=== PATIENT | female | born 1965 | race Caucasian/White ===

== ENCOUNTER 2016-08-24 15:26 | Emergency (ER) | payer OTHER ==
[~2016-08-24] VITALS: Wt 62.0 kg
[~2016-08-24 15:26] MED LIST: ALBU18HF; DIPH25CA6; FEXO-10 PO; IMODIUM; MECL12.5 PO; SIMV20TA2 PO
[2016-08-24] MEDS ORDERED: METHYLPREDNISOLONE 125 MG INJ IV ONE (16:30)
[2016-08-24] MEDS ORDERED: FAMOTIDINE 20 MG INJ IV ONE (16:30)
[2016-08-24] MEDS ORDERED: DIPHENHYDRAMINE 50 MG INJ IV ONE (16:30)
[2016-08-24] MEDS ORDERED: SOD CHLORIDE 0.9% 1,000 ML IV ONE (16:30)
[2016-08-24] MEDS ORDERED: PRED20TA PO (18:13)
[2016-08-24] MEDS ORDERED: BEN25 PO (18:14)
--- NOTE | 2016-08-24 18:23 | ERD ---
ER Documentation Chief Complaint Date/Time DATE: 08/24/16 TIME: 18:20 Chief Complaint RASH TODAY HPI This is a 50-year-old female presents to the ER with a rash that started yesterday. Patient states that rash started on her chest and now is located all over her body. Rash is extremely itchy. Patient denies any fevers or chills. She denies any facial swelling or difficulty in breathing. Patient denies trying any new foods, starting any new medications, or coming in contact with any new substances or detergents. Patient denies any fevers or chills. Patient tried putting topical Benadryl on the rash however it only minimally helped. ROS 12 point review of systems was done, all negative except per HPI. Medications Home Meds Active Scripts Diphenhydramine Hcl* (Benadryl*) 25 Mg Cap, 25 MG PO Q6, #30 CAP Prov:HEATHER RICO 08/24/16 Prednisone* (Prednisone*) 20 Mg Tab, 40 MG PO DAILY for 5 Days, TAB Prov:HEATHER RICO 08/24/16 Meclizine Hcl* (Meclizine Hcl*) 12.5 Mg Tablet, 12.5 MG PO Q8H Y for DIZZINESS for 5 Days, TAB Prov:HEATHER RICO 09/11/15 Reported Medications [Imodium] No Conflict Check 01/09/12 Albuterol Sulfate* (Ventolin HFA*) 18 Gm Hfa.aer.ad 04/11/11 Diphenhydramine Hcl (Benadryl) 25 Mg Cap 04/11/11 Fexofenadine Hcl (Anitra) 60 Mg Tablet, 60 MG PO DAILY 03/17/11 Simvastatin (Simvastatin) 20 Mg Tablet, 20 MG PO NIGHTLY 02/11/11 Allergies Allergies: Coded Allergies: No Known Allergy (Unverified , 08/24/16) PMhx/Soc Medical and Surgical Hx: pt denies Surgical Hx History of Surgery: No Anesthesia Reaction: No Hx Neurological Disorder: No Hx Respiratory Disorders: No Hx Cardiac Disorders: No Hx Psychiatric Problems: No Hx Miscellaneous Medical Probl: Yes (HIGH CHOLESTEROL) Hx Alcohol Use: No Hx Substance Use: No Hx Tobacco Use: No Smoking Status: Never smoker Physical Exam Vitals Vital Signs Date Time Temp Pulse Resp B/P Pulse Ox O2 Delivery O2 Flow Rate FiO2 08/24/16 15:30 98.0 92 18 138/78 99 Physical Exam GENERAL: The patient is well developed and appropriate for usual state of health , in no apparent distress. HEENT: Atraumatic. No tongue swelling, mouth swelling, eyes swelling. CHEST: Clear to auscultation bilaterally. There are no rales, wheezes or rhonchi. HEART: Regular rate and rhythm. No murmurs, clicks, rubs or gallops. NEURO: Alert and oriented. SKIN: Macular raised rash all over the body that is very pruritic. Results 24 hrs Current Medications Medications (Trade) Dose Ordered Sig/Diane Route PRN Reason Start Time Stop Time Status Last Admin Dose Admin Sodium Chloride (NS) 1,000 ml @ 1,000 mls/hr Q1H ONCE IV 08/24/16 16:30 08/24/16 17:29 DC 08/24/16 16:33 Methylprednisolone Sodium Succinate (Solu-Medrol) 125 mg ONCE ONCE IV 08/24/16 16:30 08/24/16 16:31 DC 08/24/16 16:32 Diphenhydramine HCl (Benadryl) 50 mg ONCE ONCE IV 08/24/16 16:30 08/24/16 16:31 DC 08/24/16 16:32 Famotidine (Pepcid Iv) 20 mg ONCE ONCE IV 08/24/16 16:30 08/24/16 16:31 DC 08/24/16 16:32 Procedures/MDM Differential Diagnosis: dermatitis, allergic urticaria, viral exanthem, insect bite, fungal infection ,viral exanthem, hand foot mouth disease, , impetigo, cellulitis, abscess, sally janice syndrome, meningocemia, necrotizing fasciitis. This is a 50-year-old female presents to the ER with a rash all over her body, this is likely an allergic reaction. Patient was given IV Solu- Medrol, Benadryl, famotidine, fluids in the ER and felt significantly better her itching was completely resolved and rash appeared much better. Suspicion for severe allergic reaction is lost patient does not have any angioedema or any difficulty breathing. Her vital signs are stable with no signs or symptoms of hypoxia. Suspicion for infectious etiology as well as patient does not have any fevers or chills. She is extremely well-appearing. She will be sent home with a short course of prednisone and Benadryl. Patient is to follow-up with her primary care doctor within 1-2 days return to ER sooner if symptoms worsen. My medical decision making was shared with the patient she understands and agrees with plan. Departure Diagnosis: Primary Impression: Allergic reaction Condition: Stable Patient Instructions: First Aid: Allergic Reactions Additional Instructions: Call your primary care doctor TOMORROW for an appointment during the next 1-2 days.See the doctor sooner or return here if your condition worsens before your appointment time. HEATHER RICO Aug 24, 2016 18:23
[2016-08-24 18:27] VITALS: BP 11/64; PULSE 85; RESP 16
== END 2016-08-24 18:29 | disposition home or self-care (01) ==
LOC: FTE 15:26
DX: R21 Rash and other nonspecific skin eruption (principal)
CPT/HCPCS: 96374; 96375; J1200; J2930; J7030; Z7502; Z7610

== ENCOUNTER 2016-09-03 18:19 | Emergency (ER) | payer OTHER ==
[~2016-09-03] VITALS: Ht 160 cm; Wt 78.8 kg
[~2016-09-03 18:19] MED LIST changes: +BEN25 PO; +PRED20TA PO
[2016-09-03 18:21] VITALS: Ht 160 cm; Wt 78.8 kg
--- NOTE | 2016-09-03 20:51 | ERD ---
ER Documentation Chief Complaint Date/Time DATE: 09/03/16 TIME: 20:48 Chief Complaint RASH WITH ITCHING X 3 DAYS HPI This is a 50-year-old female presents to the ER with an itchy rash all over her body. Patient states that she had a similar rash 2 weeks ago which was resolved with treatment in the ER and Benadryl. Patient states that her rash began on Thursday and that is extremely itchy. Patient denies any fevers or chills. She denies any chest pain, shortness of breath, facial swelling. ROS 12 point review of systems was done, all negative except per HPI. Medications Home Meds Active Scripts Prednisone* (Prednisone*) 20 Mg Tab, 40 MG PO DAILY for 4 Days, TAB Prov:HEATHER RICO 09/03/16 Camphor (Benadryl Anti-Itch) 85 Gm Gel..gm., 85 GM TP Q6 for 3 Days Prov:HEATHER RICO 09/03/16 Diphenhydramine Hcl* (Benadryl*) 25 Mg Cap, 25 MG PO Q6, #30 CAP Prov:HEATHER RICO 08/24/16 Prednisone* (Prednisone*) 20 Mg Tab, 40 MG PO DAILY for 5 Days, TAB Prov:HEATHER RICO 08/24/16 Meclizine Hcl* (Meclizine Hcl*) 12.5 Mg Tablet, 12.5 MG PO Q8H Y for DIZZINESS for 5 Days, TAB Prov:HEATHER RICO 09/11/15 Reported Medications [Imodium] No Conflict Check 01/09/12 Albuterol Sulfate* (Ventolin HFA*) 18 Gm Hfa.aer.ad 04/11/11 Diphenhydramine Hcl (Benadryl) 25 Mg Cap 04/11/11 Fexofenadine Hcl (Anitra) 60 Mg Tablet, 60 MG PO DAILY 03/17/11 Simvastatin (Simvastatin) 20 Mg Tablet, 20 MG PO NIGHTLY 02/11/11 Allergies Allergies: Coded Allergies: No Known Allergy (Unverified , 08/24/16) PMhx/Soc History of Surgery: No Anesthesia Reaction: No Hx Neurological Disorder: No Hx Respiratory Disorders: No Hx Cardiac Disorders: No Hx Psychiatric Problems: No Hx Miscellaneous Medical Probl: Yes (HIGH CHOLESTEROL) Hx Alcohol Use: No Hx Substance Use: No Hx Tobacco Use: No Smoking Status: Never smoker Physical Exam Vitals Vital Signs Date Time Temp Pulse Resp B/P Pulse Ox O2 Delivery O2 Flow Rate FiO2 09/03/16 18:21 97.8 94 18 104/67 99 Physical Exam GENERAL: The patient is well developed and appropriate for usual state of health , in no apparent distress. HEENT: Atraumatic. There is no lip, tongue, eyes swelling. No rash in mouth. CHEST: Clear to auscultation bilaterally. There are no rales, wheezes or rhonchi. HEART: Regular rate and rhythm. No murmurs, clicks, rubs or gallops. NEURO: Alert and oriented. SKIN: Hives-like rash all over body that is pruritic in nature. Results 24 hrs Current Medications Medications (Trade) Dose Ordered Sig/Diane Route PRN Reason Start Time Stop Time Status Last Admin Dose Admin Methylprednisolone Sodium Succinate (Solu-Medrol) 125 mg ONCE ONCE IV 09/03/16 21:00 09/03/16 21:01 DC 09/03/16 20:47 Diphenhydramine HCl (Benadryl) 25 mg ONCE ONCE IV 09/03/16 21:00 09/03/16 21:01 DC 09/03/16 20:47 Famotidine 20 mg 20 mg ONCE ONCE IV 09/03/16 21:00 09/03/16 21:01 DC 09/03/16 20:47 Sodium Chloride (NS) 1,000 ml @ 1,000 mls/hr Q1H ONCE IV 09/03/16 21:00 09/03/16 21:59 DC 09/03/16 20:48 Procedures/MDM Differential Diagnosis: dermatitis, allergic urticaria, viral exanthem, insect bite, fungal infection ,viral exanthem, hand foot mouth disease, , impetigo, cellulitis, abscess, sally janice syndrome, meningocemia. This is a 50-year- old female presents to the ER with an itchy rash all over her body. This is likely another allergic reaction. Patient had an episode like this 2 weeks ago and her symptoms were completely resolved with medications for allergies. Patient for severe allergic reaction is low as patient does not have any facial swelling or difficulty in breathing. Patient is afebrile and well-appearing. Patient will be sent home with a short course of steroids and Benadryl. Patient is to follow-up with her primary care doctor within 1-2 days return to ER sooner if symptoms worsen. My medical decision making was shared with the patient she understands and agrees with plan. Departure Diagnosis: Primary Impression: Rash Condition: Stable HEATHER RICO Sep 03, 2016 20:50
[2016-09-03] MEDS ORDERED: DIPHENHYDRAMINE 50 MG INJ IV ONE (21:00)
[2016-09-03] MEDS ORDERED: SOD CHLORIDE 0.9% 1,000 ML IV ONE (21:00)
[2016-09-03] MEDS ORDERED: FAMOTIDINE 20 MG INJ IV ONE (21:00)
[2016-09-03] MEDS ORDERED: METHYLPREDNISOLONE 125 MG INJ IV ONE (21:00)
[2016-09-03] MEDS ORDERED: CAMP85GE TP (22:08)
[2016-09-03] MEDS ORDERED: PRED20TA PO (22:12)
[2016-09-04 01:01] LABS: HEPATITIS B SURFACE ANTIBODY POSITIVE (NEGATIVE)
== END 2016-09-03 23:58 | disposition home or self-care (01) ==
LOC: FTE 18:19
DX: R21 Rash and other nonspecific skin eruption (principal)
CPT/HCPCS: 86703; 86706; 86803; 87340; 96374; 96375; J1200; J2930; J7030; Z7502; Z7610

== ENCOUNTER 2017-11-13 13:11 | Emergency (ER) | END 2017-11-13 18:16 | disposition home or self-care (01) ==

== ENCOUNTER 2018-02-08 14:44 | Emergency (ER) | END 2018-02-08 16:46 | disposition home or self-care (01) ==

== ENCOUNTER 2018-07-14 14:56 | Emergency (ER) | payer OTHER ==
[~2018-07-14] VITALS: Wt 63.8 kg
[~2018-07-14 14:56] MED LIST changes: +ACET500C5 PO; -ALBU18HF; -BEN25 PO; +CEPH-443 PO; +CHOLESTEROL PO; +CIPR500T4 PO; +DICY10CA40 PO; -DIPH25CA6; -FEXO-10 PO; -IMODIUM; -MECL12.5 PO; +OMEP20CA16 PO; +PHEN-538 PO; -PRED20TA PO; -SIMV20TA2 PO; +VENL37.59 PO
[2018-07-14 15:40] VITALS: BP 126/67; PULSE 84; RESP 20
[2018-07-14] MEDS ORDERED: KETOROLAC 30 MG INJ IM STA (16:17)
[2018-07-14] MEDS ORDERED: CYCL10TA7 PO (16:36)
[2018-07-14] MEDS ORDERED: NAPR-985 PO (16:36)
--- NOTE | 2018-07-15 01:19 | ERD ---
ER Documentation Chief Complaint Chief Complaint post SORIANO x3d; min relief w motrin. no NVD, not dizzy. R leg w chronic pain. HPI Patient is a 52-year-old female with past medical history of headaches presenting to the emergency department complaining of Intermittent headache for the past 3 days. She also reports neck tension. SORIANO is localized to the occipital region. She took ibuprofen at home with some relief. She denies this being the worst headache of her life. Current pain level is rated 6/10 in severity. She denies any nausea, vomiting, diarrhea, abdominal pain, chest pain, or other symptoms at this time. ROS All systems reviewed and are negative except as per history of present illness. Medications Home Meds Active Scripts Naproxen* (Naprosyn*) 500 Mg Tablet, 500 MG PO BID PRN for PAIN AND/OR INFLAMMATION, #30 TAB Prov:JAN BRADFORD PA-C 07/14/18 Cyclobenzaprine Hcl* (Cyclobenzaprine Hcl*) 10 Mg Tablet, 10 MG PO TID, #15 TAB Prov:JAN BRADFORD PA-C 07/14/18 Phenazopyridine Hcl* (Pyridium*) 200 Mg Tab, 200 MG PO TID PRN for URINARY PAIN, #6 TAB Prov:TIFFANY ZAMORA MD 02/08/18 Acetaminophen* (Tylophen*) 500 Mg Capsule, 1 CAP PO Q6H PRN for PAIN AND OR ELEVATED TEMP, #15 CAP Prov:TIFFANY ZAMORA MD 02/08/18 Cephalexin* (Keflex*) 500 Mg Capsule, 500 MG PO QID for 7 Days, CAP Prov:TIFFANY ZAMORA MD 02/08/18 Dicyclomine HCl (Dicyclomine HCl) 10 Mg Capsule, 10 MG PO TID PRN for ABDOMINAL CRAMPING, #20 CAP Prov:WINIFRED WHITE MD 11/13/17 Ciprofloxacin Hcl* (Ciprofloxacin Hcl*) 500 Mg Tablet, 500 MG PO BID for 3 Days, TAB Prov:WINIFRED WHITE MD 11/13/17 Reported Medications [Cholesterol] No Conflict Check, 1 TAB PO QHS 11/13/17 Venlafaxine Hcl* (Effexor XR*) 37.5 Mg Tab.er.24, 37.5 MG PO DAILY, TAB 11/13/17 Omeprazole* (Omeprazole*) 20 Mg Capsule.dr, 20 MG PO DAILY, #30 CAP 11/13/17 Allergies Allergies: Coded Allergies: No Known Allergy (Unverified , 07/14/18) PMhx/Soc History of Surgery: No Anesthesia Reaction: No Hx Neurological Disorder: No Hx Respiratory Disorders: Yes (ASTHMA,BRONCHITIS) Hx Cardiac Disorders: No Hx Psychiatric Problems: No Hx Miscellaneous Medical Probl: No (hyperlipidemia) Hx Alcohol Use: Yes (OCCASSIONAL) Hx Substance Use: No Hx Tobacco Use: No FmHx Family History: No diabetes Physical Exam Vitals Vital Signs Date Temp Pulse Resp B/P (MAP) Pulse Ox O2 O2 Flow FiO2 Time Delivery Rate 07/14/18 99.4 84 20 126/67 96 15:40 (86) Physical Exam Const: No acute distress Head: Atraumatic Eyes: Normal Conjunctiva ENT: Normal External Ears, Nose and Mouth. Neck: Full range of motion. No meningismus. Resp: Clear to auscultation bilaterally Cardio: Regular rate and rhythm, no murmurs Skin: No petechiae or rashes Back: No midline or flank tenderness Ext: No cyanosis, or edema Neur: Awake and alert Neuro: M/S: Alert and oriented Face: EOMI, face and pharynx with normal sensation and function Motor: Normal strength throughout Sensation: Normal sensation throughout Speech: Normal Cerebel: Normal coordination Normal gait Normal finger to nose Psych: Normal Mood and Affect Results 24 hrs Laboratory Tests Test 07/14/18 16:35 POC Beta HCG, Qualitative NEGATIVE Current Medications Medications Dose Sig/Diane Start Time Status Last (Trade) Ordered Route PRN Stop Time Admin Dose Reason Admin Ketorolac 30 mg ONCE STAT 07/14/18 DC 07/14/18 Tromethamine IM 16:17 16:36 (Toradol) 07/14/18 16:18 Procedures/MDM Patient is a 52-year-old female presenting to the emergency department with complaints of headache. Differential diagnoses include meningitis, intracranial hemorrhage, subarachnoid hemorrhage, CVA, TIA, tension headache, migraine, cluster headache, and others. I doubt any life threatening etiology at this time. Patient improved in the department after treatment with Toradol. Pt is to follow-up with primary care physician and return here immediately for any new or worsening symptoms. Departure Diagnosis: Primary Impression: Headache Additional Impression: Neck pain Condition: Fair Patient Instructions: Self-Care for Headaches, Neck Pain, No Trauma Referrals: [facility] (PCP) Additional Instructions: Call your primary care doctor TOMORROW for an appointment during the next 1-2 days.See the doctor sooner or return here if your condition worsens before your appointment time. JAN BRADFORD PA-C July 15, 2018 01:19
== END 2018-07-14 16:56 | disposition home or self-care (01) ==
LOC: FTE 14:56
DX: R51 Headache (principal); M54.2 Cervicalgia; J45.909 Unspecified asthma, uncomplicated
CPT/HCPCS: 81025; 96372; J1885; Z7502